=== PATIENT | female | born 1980 | race African-American/Black ===

== ENCOUNTER 2017-08-27 15:25 | Emergency (ER) | payer OTHER ==
[~2017-08-27] VITALS: Ht 157.5 cm; Wt 89.0 kg
[2017-08-27] MEDS ORDERED: ALBUTEROL (0.083%) 2.5MG/3ML NEB HHN STA (15:41)
[2017-08-27] MEDS ORDERED: LEVETIRACETAM 500MG PREMIX 100 ML IV ONE (15:45)
[2017-08-27 17:25] LABS: INR 1.1; PROTHROMBIN TIME 11.1 sec (9.4-11.6)
[2017-08-27 17:30] LABS: CARBON DIOXIDE 25 mEq/L (21-32); CHLORIDE 104 mEq/L (98-107); ETHANOL BLOOD < 10 mg/dL
[2017-08-27 17:33] LABS: CARBAMAZEPINE < 0.5 ug/mL (4-12); PHENOBARBITAL < 2.1 ug/mL (15.0-40.0); TROPONIN I < 0.02 ng/mL (0.00-0.04)
[2017-08-27 17:34] LABS: HCG SCREEN NEGATIVE
[2017-08-27 17:38] LABS: BASOPHILS % 0.5 % (0.0-2.0); EOSINOPHILS % 3.5 % (0.0-5.0); HEMATOCRIT. 34.2 % (36.0-48.0); HEMOGLOBIN. 10.7 g/dL (12.0-16.0); LYMPHOCYTES % 26.9 % (20.0-50.0); MEAN CORPUSCULAR HEMOGLOBIN 24.5 pg (28.0-32.0); MEAN CORPUSCULAR VOLUME 78.4 fL (81.0-99.0); MEAN PLATELET VOLUME 8.4 fl (7.4-10.4); MONOCYTES % 7.5 % (2.0-8.0); NEUTROPHILS % 61.6 % (40.0-76.0); PLATELET 439 x1000/uL (130-400); RED BLOOD CELL COUNT 4.36 mill/uL (4.2-5.4)
[2017-08-27] MEDS ORDERED: VALPROIC ACID 250MG CAPSULE PO ONE (18:00)
[2017-08-27] MEDS ORDERED: CLONIDINE 0.2MG TABLET PO ONE (18:45)
[2017-08-27] MEDS ORDERED: ACETAMINOPHEN 325MG TABLET PO ONE (20:30)
[2017-08-27 20:45] VITALS: BP 151/101
[2017-08-27] MEDS ORDERED: DEXT 5%/0.45% NACL KCL 10MEQ/L 1,000 ML IV SCH (23:37)
[2017-08-27] MEDS ORDERED: CLONIDINE 0.1MG TABLET PO PRN (23:45)
[2017-08-27] MEDS ORDERED: HYDROCODONE/ACETAMINOPHEN 5/325MG TABLET PO PRN (23:45)
[2017-08-27] MEDS ORDERED: ACETAMINOPHEN 325MG TABLET PO PRN (23:45)
[2017-08-27] MEDS ORDERED: DOCUSATE SODIUM 100MG CAPSULE PO PRN (23:45)
[2017-08-27] MEDS ORDERED: ONDANSETRON HCL 4MG/2ML VIAL IV PRN (23:45)
== END 2017-08-27 22:59 | disposition left against medical advice (07) ==
LOC: ER 15:39 → EDBEDREQ 20:16 → EDBEDREQTM 20:16 → ER 22:59 → CANBEDREQ 08-28 01:35
DX: G40.909 Epilepsy, unspecified, not intractable, without status epilepticus (principal); I11.9 Hypertensive heart disease without heart failure; J45.909 Unspecified asthma, uncomplicated; D50.9 Iron deficiency anemia, unspecified; E87.6 Hypokalemia; I69.354 Hemiplegia and hemiparesis following cerebral infarction affecting left non-dominant side; Z90.49 Acquired absence of other specified parts of digestive tract; Z88.6 Allergy status to analgesic agent; Z91.040 Latex allergy status; Z91.013 Allergy to seafood; Z98.890 Other specified postprocedural states
CPT/HCPCS: 36415; 70450; 71010; 73030; 80053; 80156; 80165; 80184; 80185; 84484; 84703; 85025; 85610; 93005; 94640; 96365; 99291; G0482; J1953; J7030; J7611; Z7610; A4565